=== PATIENT | female | born 1960 | race Caucasian/White ===

== ENCOUNTER 2020-04-06 11:10 | Emergency (ER) | payer OTHER ==
[~2020-04-06] VITALS: Ht 162.6 cm; Wt 62.1 kg
[2020-04-06] MEDS ORDERED: LEVOTHYROXINE50 MCG PO (12:45)
--- NOTE | 2020-04-07 15:10 | EKG ---
[facility] [address] [facility] [place] [address] Signed Normal sinus rhythm Normal ECG No previous ECGs available Confirmed by BASIL BENNETT MD ([id number]) on 04/07/2020 3:10:27 PM Electronically Signed By: BASIL BENNETT MD 04/07/20 1510 PATIENT NAME: SRINIVASA DOWELL Electrocardiogram DATE OF : 58 PHYSICIAN: BASIL BENNETT MD REPORT #: [id number] REPORT IS CONFIDENTIAL AND NOT TO BE RELEASED WITHOUT AUTHORIZATION
== END 2020-04-06 16:01 | disposition home or self-care (01) ==
LOC: ED 11:10
DX: R07.9 Chest pain, unspecified (principal); G43.909 Migraine, unspecified, not intractable, without status migrainosus; Z86.73 Personal history of transient ischemic attack (TIA), and cerebral infarction without residual deficits; Z88.5 Allergy status to narcotic agent; Z88.8 Allergy status to other drugs, medicaments and biological substances; Z79.899 Other long term (current) drug therapy
CPT/HCPCS: 71045; 80053; 83735; 84484; 85025; 85379; 93005; 93010; 99285-25

== ENCOUNTER 2025-01-02 17:01 | Emergency (ER) | payer MEDICARE, BC ==
[~2025-01-02] VITALS: Ht 162.6 cm; Wt 68.4 kg
[~2025-01-02 17:01] MED LIST: LEVOTHYROXINE50 MCG PO
[2025-01-02] MEDS ORDERED: ASPIRIN 81 MG CHEW PO ONE (17:15)
[2025-01-02] MEDS ORDERED: NITROGLYCERIN 0.4 MG SUBL SL PRN (17:15)
[2025-01-02] MEDS ORDERED: TAMOXIFEN CITRA10 MG PO (17:16)
[2025-01-02] MEDS ORDERED: FAMOTIDINE40 MG PO (17:16)
[2025-01-02] MEDS ORDERED: SUMATRIPTAN SU100 MG PO (17:16)
[2025-01-02] MEDS ORDERED: AIMOVIG AU70 MG/1 ML SQ (17:16)
[2025-01-02] MEDS ORDERED: ATORVASTATIN CA10 MG PO (17:16)
[2025-01-02] MEDS ORDERED: ZYRTEC10 M3 PO (17:17)
[2025-01-02 17:19] LABS: BASOPHILS 0.3 % (0.1-1.2); EOSINOPHILS 0.5 % (0.7-5.8); HEMATOCRIT 46.1 % (34.1-44.9); HEMOGLOBIN 15.1 g/dL (11.2-15.7); LYMPHOCYTES 6.4 % (19.3-51.7); MCH 29.6 PG (25.6-32.2); MCHC 32.8 g/dL (32.2-35.5); MCV 90.4 fL (79.4-94.8); MONOCYTES 5.2 % (4.7-12.5); NEUTROPHILS 87.4 % (34.0-71.1); PLATELET COUNT 222 K/uL (182-369)
[2025-01-02 17:30] LABS: INR 1.06 (0.80-1.30); PROTIME 13.2 Sec (11.2-14.2)
[2025-01-02] MEDS ORDERED: ondansetron HCL 4 MG/2 ML VIAL IV ONE (17:30)
[2025-01-02 17:38] LABS: ALBUMIN 3.8 g/dL (3.4-5.0); ALBUMIN/GLOBULIN RATIO 1.15 (1.1-2.4); ANION GAP 8.6 (7-21); BILIRUBIN, TOTAL 0.6 mg/dL (0.2-1.0); BUN/CREATININE RATIO 27.58 (6.0-28.6); CALCIUM 8.9 mg/dL (8.5-10.1); CREATININE, SERUM 0.87 mg/dL (0.55-1.02); POTASSIUM 3.6 mmol/L (3.5-5.1); PROTEIN, TOTAL 7.1 g/dL (6.4-8.2)
[2025-01-02] MEDS ORDERED: diphenhydrAMINE HCL 50 MG/ML VIAL IV ONE (18:15)
[2025-01-02] MEDS ORDERED: PROCHLORPERAZINE EDISYLATE 10 MG/2 ML VIAL IV ONE (18:15)
[2025-01-02 19:03] VITALS: BP 111/68
--- NOTE | 2025-01-02 22:31 | EKG ---
[facility] [address] [facility] [place] [address] Signed Normal sinus rhythm Cannot rule out Anterior infarct , age undetermined Abnormal ECG When compared with ECG of 06-APR-2020 11:18, No significant change was found Confirmed by Igor Desai MD () on 01/02/2025 10:31:00 PM Electronically Signed By: IGOR DESAI MD 01/02/252230 PATIENT NAME: DELMERSARAHLINDA ORNELAS Electrocardiogram DATE OF : 58 PHYSICIAN: IGOR DESAI MD REPORT #: [id number] REPORT IS CONFIDENTIAL AND NOT TO BE RELEASED WITHOUT AUTHORIZATION
== END 2025-01-02 19:04 | disposition home or self-care (01) ==
LOC: ED 17:01
PROVIDERS: Emergency Medicine
DX: R07.9 Chest pain, unspecified (principal); E78.5 Hyperlipidemia, unspecified; Z88.1 Allergy status to other antibiotic agents; Z88.5 Allergy status to narcotic agent; Z79.899 Other long term (current) drug therapy; Z79.890 Hormone replacement therapy
CPT/HCPCS: 36415; 71045; 80053; 83735; 84484; 85025; 85610; 93005; 93010; 96374; 96375; 99285-25; A9270; J0780; J1200; J2405